=== PATIENT | male | born 1960 | race Caucasian/White ===

== ENCOUNTER 2016-09-07 20:43 | Emergency (ER) | payer SELFPAY ==
[~2016-09-07] VITALS: Ht 170.2 cm; Wt 99.5 kg
[2016-09-07 21:39] VITALS: Ht 170.2 cm; Wt 99.5 kg
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
[2016-09-07] MEDS ORDERED: CYCL-319 PO (23:14)
[2016-09-07] MEDS ORDERED: HYDR-906 PO (23:14)
[2016-09-07] MEDS ORDERED: IBUP-1542 PO (23:14)
[2016-09-07 23:15] LABS: URINE BLOOD (Dip) POC Negative (NEGATIVE)
== END 2016-09-07 23:57 | disposition home or self-care (01) ==
LOC: FTE 20:43
DX: S69.92XA Unspecified injury of left wrist, hand and finger(s), initial encounter (principal); S69.91XA Unspecified injury of right wrist, hand and finger(s), initial encounter; S16.1XXA Strain of muscle, fascia and tendon at neck level, initial encounter; S39.012A Strain of muscle, fascia and tendon of lower back, initial encounter; S00.93XA Contusion of unspecified part of head, initial encounter; V49.40XA Driver injured in collision with unspecified motor vehicles in traffic accident, initial encounter
CPT/HCPCS: 81003; 99284